=== PATIENT | male | born 1975 | race Asian ===

== ENCOUNTER 2017-01-05 09:00 | Emergency (ER) | payer MEDICAID, OTHER ==
[~2017-01-05] VITALS: Ht 175.3 cm; Wt 84.4 kg
[~2017-01-05 09:00] MED LIST: VALS160T2 PO
[2017-01-05 09:03] VITALS: BP 148/95
--- NOTE | 2017-01-05 10:42 | NUR ---
Patient ambulated to OF to be evaluated as fast track by Dr. Dooley.
--- NOTE | 2017-01-05 10:44 | NUR ---
PATIENT PRESENTS TO ED WITH RASH BACK OF NECK . PT STATES . DENIES N/V/D; SKIN IS PINK/WARM/DRY; AAOX4 WITH EVEN AND STEADY GAIT; LUNGS CLEAR BL; HR EVEN AND REGULAR; PT DENIES ANY FEVER, CP, SOB, OR COUGH AT THIS TIME; PATIENT STATES PAIN OF 0/10 AT THIS TIME; VSS; PATIENT POSITIONED FOR COMFORT; HOB ELEVATED; BEDRAILS UP X2; BED DOWN. ER MD MADE AWARE OF PT STATUS.
--- NOTE | 2017-01-05 10:50 | NUR ---
Dr. Dooley evaluating patient at bedside.
[2017-01-05 10:58] VITALS: BP 148/99
== END 2017-01-05 10:58 | disposition home or self-care (01) ==
LOC: MED 09:00
DX: L08.9 Local infection of the skin and subcutaneous tissue, unspecified (principal); I10 Essential (primary) hypertension
CPT/HCPCS: 99283

== ENCOUNTER 2017-01-24 12:15 | Emergency (ER) | payer MEDICAID ==
[~2017-01-24] VITALS: Ht 172.7 cm; Wt 79.4 kg
[2017-01-24 12:36] VITALS: BP 150/108
[2017-01-24 13:01] LABS: BASOPHILS # (AUTO) 0.2 K/uL (0.00-0.22); BASOPHILS % (AUTO) 2.1 % (0.0-2.0); EOSINOPHILS # (AUTO) 0.3 K/uL (0-0.4); EOSINOPHILS % (AUTO) 3.1 % (0.0-4.0); HEMATOCRIT 50.3 % (36-52); HEMOGLOBIN 16.8 g/dL (12.0-18.0); LYMPHOCYTES # (AUTO) 2.1 K/uL (2.0-11.5); LYMPHOCYTES % (AUTO) 22.9 % (20.5-51.1); MEAN CORPUSCULAR HEMOGLOBIN 31 pg (27-31); MEAN CORPUSCULAR HGB CONC 33 g/dL (33-37); MEAN CORPUSCULAR VOLUME 93 fL (80-94); MONOCYTES # (AUTO) 0.4 K/uL (0.8-1.0); MONOCYTES % (AUTO) 4.8 % (1.7-9.3); NEUTROPHILS # (AUTO) 6.1 K/uL (1.8-7.7); NEUTROPHILS % (AUTO) 67.1 % (42.2-75.2); PLATELET COUNT (AUTO) 280 K/uL (140-450); RED BLOOD CELL COUNT(AUTO) 5.44 MIL/uL (4.20-6.10); RED CELL DISTRIBUTION WIDTH 11.2 % (11.6-13.7); WHITE BLOOD COUNT (AUTO) 9.1 K/uL (4.8-10.8)
[2017-01-24 13:23] LABS: ALBUMIN 4.4 g/dL (3.4-5.0); ANION GAP 11.4 (8-16); CALCIUM 9.1 mg/dL (8.5-10.1); CARBON DIOXIDE 30.4 mmol/L (21-32); POTASSIUM 3.8 mmol/L (3.5-5.1); TOTAL PROTEIN, SERUM 7.8 g/dL (6.4-8.2)
[2017-01-24 13:24] LABS: INR 1.1 (0.8-1.2); PARTIAL THROMBOPLASTIN TIME 27.2 secs (22-35.6); PROTHROMBIN TIME 10.4 secs (10.8-13.4)
--- NOTE | 2017-01-24 15:13 | NUR ---
PATIENT LEFT WITHOUT BEING SEEN BY DR. VALLECILLO. NO FURTHER CARE PROVIDED FOR PATIENT.
== END 2017-01-24 15:13 | disposition left against medical advice (07) ==
LOC: MED 12:15
DX: R03.0 Elevated blood-pressure reading, without diagnosis of hypertension (principal); Z53.21 Procedure and treatment not carried out due to patient leaving prior to being seen by health care provider
CPT/HCPCS: 36415; 80053; 83880; 84484; 85025; 85610; 85730; 93005

== ENCOUNTER 2017-04-22 18:46 | Emergency (ER) | payer MEDICAID ==
[~2017-04-22] VITALS: Ht 172.7 cm; Wt 82.6 kg
[2017-04-22 18:52] VITALS: BP 161/108
--- NOTE | 2017-04-22 19:47 | NUR ---
Patient to OF.
--- NOTE | 2017-04-22 20:08 | NUR ---
Patient to bed 04.
--- NOTE | 2017-04-22 20:10 | NUR ---
PT PRESENTS TO ER FOR EVALUATION OF ELEVATED BLOOD PRESSURE. PT STATES HE SEEN HIS PCP FOR SAME S/SX AND WAS GIVEN A PO MEDICATION AND INSTRUCTED IF B/P DIDN'T COME DOWN, TO GO TO ER. BLOOD PRESSURE UPON ARRIVAL TO ER 161/108.
--- NOTE | 2017-04-22 20:52 | NUR ---
Patient being evaluated by physician DR STINSON at bedside.
[2017-04-22 21:01] VITALS: BP 138/93
--- NOTE | 2017-04-22 21:01 | NUR ---
Patient discharged with v/s stable. Written and verbal after care instructions given and explained. Patient verbalized understanding. Ambulatory with steady gait. All questions addressed prior to discharge. Advised to follow up with PMD.
== END 2017-04-22 21:01 | disposition home or self-care (01) ==
LOC: MED 18:46
DX: I16.0 Hypertensive urgency (principal); Z79.899 Other long term (current) drug therapy
CPT/HCPCS: 99283

== ENCOUNTER 2017-04-28 20:11 | Emergency (ER) | payer MEDICAID ==
[~2017-04-28] VITALS: Ht 172.7 cm; Wt 83.1 kg
[2017-04-28 20:20] VITALS: BP 160/104
[2017-04-28] MEDS ORDERED: HYDR25TA32 PO (20:28)
[2017-04-28] MEDS ORDERED: AMLO5TAB PO (20:28)
[2017-04-28] MEDS ORDERED: ATEN50TA8 PO (20:28)
--- NOTE | 2017-04-28 20:48 | NUR ---
Patient ambulated to bed 04.
--- NOTE | 2017-04-28 20:48 | NUR ---
42Y M BIB SELD c/o high blood pressure at home was 160/111. DENIES N/V/D. MILD HEADACHE, DENIES BLURRED VISION. MED HX: HTN ; SKIN IS PINK/WARM/DRY; AAOX4 WITH EVEN AND STEADY GAIT; LUNGS CLEAR BL; HR EVEN AND REGULAR; PT DENIES ANY FEVER, CP, SOB, OR COUGH AT THIS TIME;; VSS; PATIENT POSITIONED FOR COMFORT; HOB ELEVATED; BEDRAILS UP X2; BED DOWN. ER MD MADE AWARE OF PT STATUS.
--- NOTE | 2017-04-28 21:50 | NUR ---
Dr. Adams evaluating patient at bedside.
[2017-04-28] MEDS ORDERED: hydrALAZINE 20 MG/ML VIAL IM ONE (22:00)
[2017-04-28 22:56] VITALS: BP 136/84
--- NOTE | 2017-04-28 22:56 | NUR ---
Patient discharged with v/s stable. Written and verbal after care instructions given and explained. Patient alert, oriented and verbalized understanding of instructions. Ambulatory with steady gait. All questions addressed prior to discharge. ID band removed. Patient advised to follow up with PMD. Rx of CLONIDINE 0.1MG given. Patient educated on indication of medication including possible reaction and side effects. Opportunity to ask questions provided and answered.
== END 2017-04-28 22:56 | disposition home or self-care (01) ==
LOC: MED 20:11
DX: I10 Essential (primary) hypertension (principal)
CPT/HCPCS: 96372; 99283; J0360

== ENCOUNTER 2017-04-29 10:37 | Emergency (ER) | payer MEDICAID ==
[~2017-04-29] VITALS: Ht 172.7 cm; Wt 82.6 kg
[~2017-04-29 10:37] MED LIST changes: +AMLO5TAB PO; +ATEN50TA8 PO; +HYDR25TA32 PO; -VALS160T2 PO
[2017-04-29 10:45] VITALS: BP 154/107
[2017-04-29] MEDS ORDERED: hydrALAZINE 20 MG/ML VIAL IM ONE (14:15)
[2017-04-29 15:03] VITALS: BP 128/86
== END 2017-04-29 15:03 | disposition home or self-care (01) ==
LOC: MED 10:37
DX: R51 Headache (principal); I10 Essential (primary) hypertension
CPT/HCPCS: 99283

== ENCOUNTER 2017-05-02 21:07 | Emergency (ER) | payer MEDICAID ==
[~2017-05-02] VITALS: Ht 172.7 cm; Wt 82.6 kg
[2017-05-02 21:13] VITALS: BP 155/97
[2017-05-02 22:06] VITALS: BP 130/85
== END 2017-05-02 22:00 | disposition home or self-care (01) ==
LOC: MED 21:07
DX: I10 Essential (primary) hypertension (principal); Z79.899 Other long term (current) drug therapy
CPT/HCPCS: 99283

== ENCOUNTER 2017-07-05 08:53 | Emergency (ER) | payer MEDICAID ==
[~2017-07-05] VITALS: Ht 172.7 cm; Wt 82.3 kg
[2017-07-05 09:00] VITALS: BP 135/85
--- NOTE | 2017-07-05 09:08 | NUR ---
Patient ambulated to bed 6. RN evaluating patient at bedside.
--- NOTE | 2017-07-05 09:08 | NUR ---
Dr. Coats evaluating patient at bedside.
--- NOTE | 2017-07-05 09:12 | NUR ---
PATIENT PRESENTS TO ED WITH C/O RASH TO HIS BLE AND ARMS AND NECK . PT STATES HE STARTED TAKING AMLODIPINE A MONTH AGO BEFORE THE RASHES APPEARED. PATIENT STATES HE APPLIES CREAM TO THE RASHES TO RELIEVE SYMPTOMS OF REDNESS AND ITCH . DENIES N/V/D; SKIN IS PINK/WARM/DRY; AAOX4 WITH EVEN AND STEADY GAIT; LUNGS CLEAR BL; HR EVEN AND REGULAR; PT DENIES ANY FEVER, CP, SOB, OR COUGH AT THIS TIME; PATIENT STATES PAIN OF 0/10 AT THIS TIME; VSS; PATIENT POSITIONED FOR COMFORT; HOB ELEVATED; BEDRAILS UP X2; BED DOWN. ER MD MADE AWARE OF PT STATUS.
[2017-07-05 10:05] LABS: BASOPHILS # (AUTO) 0.2 K/uL (0.00-0.22); BASOPHILS % (AUTO) 3.2 % (0.0-2.0); EOSINOPHILS # (AUTO) 0.3 K/uL (0-0.4); EOSINOPHILS % (AUTO) 3.5 % (0.0-4.0); HEMATOCRIT 43.9 % (36-52); HEMOGLOBIN 15.1 g/dL (12.0-18.0); LYMPHOCYTES # (AUTO) 1.3 K/uL (2.0-11.5); LYMPHOCYTES % (AUTO) 18.6 % (20.5-51.1); MEAN CORPUSCULAR HEMOGLOBIN 32 pg (27-31); MEAN CORPUSCULAR HGB CONC 34 g/dL (33-37); MEAN CORPUSCULAR VOLUME 93 fL (80-94); MONOCYTES # (AUTO) 0.5 K/uL (0.8-1.0); MONOCYTES % (AUTO) 7.2 % (1.7-9.3); NEUTROPHILS # (AUTO) 4.9 K/uL (1.8-7.7); NEUTROPHILS % (AUTO) 67.5 % (42.2-75.2); PLATELET COUNT (AUTO) 240 K/uL (140-450); RED BLOOD CELL COUNT(AUTO) 4.74 MIL/uL (4.20-6.10); RED CELL DISTRIBUTION WIDTH 11.5 % (11.6-13.7); WHITE BLOOD COUNT (AUTO) 7.2 K/uL (4.8-10.8)
[2017-07-05 10:16] LABS: PROTHROMBIN TIME 10.4 secs (10.8-13.4)
[2017-07-05 10:42] VITALS: BP 131/98
--- NOTE | 2017-07-05 10:43 | NUR ---
Patient discharged with v/s stable. Written and verbal after care instructions given and explained. Patient alert, oriented and verbalized understanding of instructions. Ambulatory with steady gait. All questions addressed prior to discharge. ID band removed. Patient advised to follow up with PMD. Rx of hydrocortisone topical cream given. Patient educated on indication of medication including possible reaction and side effects. Opportunity to ask questions provided and answered.
== END 2017-07-05 10:43 | disposition home or self-care (01) ==
LOC: MED 08:53
DX: S40.861A Insect bite (nonvenomous) of right upper arm, initial encounter (principal); Z79.899 Other long term (current) drug therapy; I10 Essential (primary) hypertension; W57.XXXA Bitten or stung by nonvenomous insect and other nonvenomous arthropods, initial encounter; Y99.2 Volunteer activity; Y93.89 Activity, other specified; Y92.89 Other specified places as the place of occurrence of the external cause
CPT/HCPCS: 36415; 85025; 85610; 85730; 99284

== ENCOUNTER 2017-07-29 16:25 | Emergency (ER) | payer MEDICAID ==
[~2017-07-29] VITALS: Ht 172.7 cm; Wt 82.6 kg
[2017-07-29 16:50] VITALS: BP 139/97
[2017-07-29 18:00] LABS: HEMATOCRIT 48.1 % (36-52); MEAN CORPUSCULAR HEMOGLOBIN 31 pg (27-31); MEAN CORPUSCULAR HGB CONC 33 g/dL (33-37); MEAN CORPUSCULAR VOLUME 92 fL (80-94); PLATELET COUNT (AUTO) 247 K/uL (140-450); RED BLOOD CELL COUNT(AUTO) 5.21 MIL/uL (4.20-6.10); RED CELL DISTRIBUTION WIDTH 11.4 % (11.6-13.7); WHITE BLOOD COUNT (AUTO) 14.8 K/uL (4.8-10.8)
[2017-07-29 18:13] LABS: APPEARANCE,URINE CLOUDY (CLEAR); COLOR,URINE AMBER (YELLOW)
[2017-07-29 18:15] LABS: BILIRUBIN,URINE NEGATIVE (NEGATIVE); BLOOD, URINE 3+ (NEGATIVE); LEUKOCYTE ESTERASE ,URINE 2+ (NEGATIVE); NITRITE, URINE POSITIVE (NEGATIVE)
[2017-07-29 18:16] LABS: ALBUMIN 4.2 g/dL (3.4-5.0); ANION GAP 11.3 (8-16); CARBON DIOXIDE 30.5 mmol/L (21-32); POTASSIUM 3.8 mmol/L (3.5-5.1); TOTAL BILIRUBIN 0.7 mg/dL (0.0-1.0)
[2017-07-29 18:16] LABS: UGLUCOSE NEGATIVE (NEGATIVE)
[2017-07-29 18:17] LABS: EOSINOPHILS % (MANUAL) 2 % (0-4); LYMPHOCYTES % (MANUAL) 20 % (20-46); MONOCYTES % (MANUAL) 6 % (5-12)
[2017-07-29 18:17] LABS: RBC,URINE TOO NUMEROUS TO COUN /HPF (0-5); WBC,URINE 20-60 /HPF (0-5)
[2017-07-29] MEDS ORDERED: cefTRIAXone 1,000 MG in LIDOCAINE 1% ***ER ONLY *** 2.1 ML IM ONE (18:45)
[2017-07-29 19:18] VITALS: BP 136/98
== END 2017-07-29 19:18 | disposition home or self-care (01) ==
LOC: MED 16:25
DX: N39.0 Urinary tract infection, site not specified (principal); I10 Essential (primary) hypertension; Z79.899 Other long term (current) drug therapy
CPT/HCPCS: 36415; 80053; 81001; 83605; 85025; 87040; 87086; 87186; 96372; 99284; J0696; J2001

== ENCOUNTER 2017-09-21 05:56 | Emergency (ER) | payer MEDICAID ==
[~2017-09-21] VITALS: Ht 172.7 cm; Wt 81.6 kg
[2017-09-21 06:08] VITALS: BP 144/89
--- NOTE | 2017-09-21 06:16 | NUR ---
to lobby amb, v/s stable, a/w for bed ., ermd noted
--- NOTE | 2017-09-21 08:51 | NUR ---
pt c/o soar throat and chills x3 days. states taking motrin at home with some relief. pt stable at this time. sitting in chair. md aware and awaiting orders.
[2017-09-21 09:05] VITALS: BP 134/90
--- NOTE | 2017-09-21 09:08 | NUR ---
Patient discharged with v/s stable. Written and verbal after care instructions given and explained. Patient alert, oriented and verbalized understanding of instructions. Ambulatory with steady gait. All questions addressed prior to discharge. ID band removed. Patient advised to follow up with PMD. Rx of prednisone and motrin given. Patient educated on indication of medication including possible reaction and side effects. Opportunity to ask questions provided and answered.
== END 2017-09-21 09:08 | disposition home or self-care (01) ==
LOC: MED 05:56
DX: J02.9 Acute pharyngitis, unspecified (principal); I10 Essential (primary) hypertension
CPT/HCPCS: 99283

== ENCOUNTER 2017-11-10 11:00 | Emergency (ER) | payer MEDICAID ==
[~2017-11-10] VITALS: Ht 172.7 cm; Wt 82.7 kg
[2017-11-10 11:04] VITALS: BP 150/105
--- NOTE | 2017-11-10 11:15 | NUR ---
42m bib self with c/o increased frequency and urgency x 2 days, progressively getting worse. Pt deneis any penile discharge, pain, or n/v/d. Pt sts voiding ever 10-15 mins. Pt is aox4 with steady gait. RR are even and unlabored. NAD. Awaiting er md dixon. All needs met at this time.
[2017-11-10 11:35] VITALS: BP 148/98
--- NOTE | 2017-11-10 11:35 | NUR ---
Patient discharged with v/s stable. Written and verbal after care instructions given and explained. Patient alert, oriented and verbalized understanding of instructions. Ambulatory with to car. All questions addressed prior to discharge. ID band removed. Patient advised to follow up with PMD. Rx of Flomax given. Patient educated on indication of medication including possible reaction and side effects. Opportunity to ask questions provided and answered.
== END 2017-11-10 11:35 | disposition home or self-care (01) ==
LOC: MED 11:00
DX: R35.0 Frequency of micturition (principal); I10 Essential (primary) hypertension; E78.5 Hyperlipidemia, unspecified; Z79.899 Other long term (current) drug therapy
CPT/HCPCS: 81002; 99283

== ENCOUNTER 2017-11-15 11:08 | Emergency (ER) | payer MEDICAID ==
[~2017-11-15] VITALS: Ht 172.7 cm; Wt 82.6 kg
[2017-11-15 11:13] VITALS: BP 160/103
--- NOTE | 2017-11-15 11:16 | NUR ---
PT AMBULATED TO BED 4.
--- NOTE | 2017-11-15 11:18 | NUR ---
42M BIB SELF C/O HIGH BLOOD PRESSURE X THIS MORNING; PT STATES PCP CHANGED PT'S MEDICATION, PT TOOK BP, SBP WAS AT 110, SO PT CAME TO ER; PT STATES NO PAIN, NO N/V/D, NO DIZZINESS, OR BLURRY VISION AT THIS TIME; PT STATES " I JUST HAVE A LITTLE HEADACHE, BUT NO PAIN"; PT AA&OX4, PERRLA, BL LUNG SOUNDS CLEAR, RR EVEN/UNLABORED, SKIN IS WARM/DRY/INTACT WITH EVEN AND STEADY GAIT; PT RESTING IN BED WITH HOB ELEVATED AND IN LOWEST POSITION; POSITIONED FOR COMFORT; ER MD MADE AWARE OF STATUS. WILL CONTINUE TO MONITOR.
--- NOTE | 2017-11-15 11:21 | NUR ---
ER MD DR. VALLECILLO EVALUATING PT AT BEDSIDE.
[2017-11-15 11:28] VITALS: BP 153/91
== END 2017-11-15 11:28 | disposition home or self-care (01) ==
LOC: MED 11:08
DX: I10 Essential (primary) hypertension (principal)
CPT/HCPCS: 99283

== ENCOUNTER 2018-03-02 11:18 | Emergency (ER) | payer MEDICAID ==
[~2018-03-02] VITALS: Ht 172.7 cm; Wt 83.0 kg
[~2018-03-02 11:18] MED LIST changes: -HYDR25TA32 PO
[2018-03-02 11:28] VITALS: BP 142/100
--- NOTE | 2018-03-02 11:33 | NUR ---
patient to rm 12 with steady gait. gave report to Laura MEYERS.
[2018-03-02] MEDS ORDERED: NACL 0.9% 1,000 ML IV SCH (11:48)
[2018-03-02] MEDS ORDERED: GLYCOPYRROLATE 0.2 MG/ML VIAL IV ONE (11:50)
[2018-03-02] MEDS ORDERED: KETOROLAC 30 MG/ML VIAL IVP ONE (11:50)
--- NOTE | 2018-03-02 12:00 | NUR ---
PATIENT CAME IN TO THE ER WITH COMPLAINT OF RIGHT UPPER ABDOMINAL PAIN, UPPER RIGHT QUADRANT. PATIENT HAS BEEN HAVING PAIN FOR ABOUT ONE WEEK. PT STATES THAT IT SEEMS THAT WHEN HE TAKES HIS HTN MEDICATION, IT ALWAYS STARTS TO HURT. THE PAIN DOES GO AWAY DURING THE DAY BUT RETURNS WHEN HE TAKES HIS MEDICATION AGAIN. BOWL SOUNDS ARE ACTIVE ON ALL FOUR QUADRANTS. ABDOMEN FEELS SLIGHTLY DISTENDED WHEN PALPATED BUT NO PAIN TO PALPATION. . PATIENT HAS A HISTORY OF HTN. NO KNOWN ALLERGIES. PATIENT WAS PHAN TO VOID FOR U/A PATIENT IS A LEVEL 7/10 PAIN BUT REFUSED MEDICATION AND IV MANAGMENT. PT STATES HE JUST WANTS BLOOD TEST AND CT. PT IS RESTING IN BED.
--- NOTE | 2018-03-02 12:07 | NUR ---
PT REFUSED MEDICATION AND IV MANAGEMENT. PATIENTS STATES HIS PAIN IS TOLERABLE FOR NOW. PATIENT LEVEL OF AIN IS A 7/10. PATIENT IS RESTING IN BED
--- NOTE | 2018-03-02 12:07 | NUR ---
LAB IS WITH BRUNA
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
--- NOTE | 2018-03-02 12:17 | NUR ---
ULTRASOUND IS WITH PATIENT
[2018-03-02 12:19] LABS: BASOPHILS # (AUTO) 0.1 K/uL (0.00-0.22); BASOPHILS % (AUTO) 1.3 % (0.0-2.0); EOSINOPHILS # (AUTO) 0.4 K/uL (0-0.4); EOSINOPHILS % (AUTO) 5.1 % (0.0-4.0); HEMATOCRIT 44.2 % (36-52); LYMPHOCYTES # (AUTO) 1.7 K/uL (2.0-11.5); LYMPHOCYTES % (AUTO) 24.5 % (20.5-51.1); MEAN CORPUSCULAR HEMOGLOBIN 31 pg (27-31); MEAN CORPUSCULAR HGB CONC 34 g/dL (33-37); MEAN CORPUSCULAR VOLUME 91.3 fL (80-94); MONOCYTES # (AUTO) 0.6 K/uL (0.8-1.0); MONOCYTES % (AUTO) 8.8 % (1.7-9.3); NEUTROPHILS # (AUTO) 4.3 K/uL (1.8-7.7); NEUTROPHILS % (AUTO) 60.3 % (42.2-75.2); PLATELET COUNT (AUTO) 241 K/uL (140-450); RED BLOOD CELL COUNT(AUTO) 4.84 MIL/uL (4.20-6.10); RED CELL DISTRIBUTION WIDTH 12.3 % (11.6-13.7); WHITE BLOOD COUNT (AUTO) 7.1 K/uL (4.8-10.8)
[2018-03-02 12:21] LABS: APPEARANCE,URINE CLEAR (CLEAR); BILIRUBIN,URINE NEGATIVE (NEGATIVE); BLOOD, URINE NEGATIVE (NEGATIVE); COLOR,URINE YELLOW (YELLOW); LEUKOCYTE ESTERASE ,URINE NEGATIVE (NEGATIVE); NITRITE, URINE NEGATIVE (NEGATIVE); UGLUCOSE 1+ (NEGATIVE)
[2018-03-02 12:34] LABS: ANION GAP 10.2 (8-16); CARBON DIOXIDE 26.4 mmol/L (21-32); POTASSIUM 3.6 mmol/L (3.5-5.1)
[2018-03-02 12:40] LABS: ALBUMIN 3.9 g/dL (3.4-5.0); TOTAL BILIRUBIN 0.7 mg/dL (0.0-1.0)
--- NOTE | 2018-03-02 14:00 | NUR ---
PATIENT IS AGITATED AND REFUSES PAIN MEDICATION. PAIN LEVEL IS A 7/10. PATIENT WANTED TO LEAVE AMA. DOCTOR CAME IN AND DISCUSSED THE RESULTS WITH THE PATIENT. THE PATIENT IS A LITTLE MORE AT EASE. HE WAS WORRIED ABOUT HIS RESULTS.
[2018-03-02 14:33] VITALS: BP 143/88
--- NOTE | 2018-03-02 14:34 | NUR ---
PATIENT WAS GIVEN DOCUMENTATION ON ULTRASOUND AND CT. PATIENT SEEMED LESS ANXIOUS AND WAS CLAM UPON DISCHARGE. VITALS WERE STABLE.
== END 2018-03-02 14:10 | disposition home or self-care (01) ==
LOC: MED 11:18
DX: K59.00 Constipation, unspecified (principal); R14.3 Flatulence; I10 Essential (primary) hypertension; Z79.899 Other long term (current) drug therapy
CPT/HCPCS: 36415; 74176; 76705; 80053; 81003; 82150; 83690; 85025; 99285; Q0092

== ENCOUNTER 2018-05-09 09:38 | Emergency (ER) | payer MEDICAID ==
[~2018-05-09] VITALS: Ht 172.7 cm; Wt 81.6 kg
--- NOTE | 2018-05-09 09:40 | NUR ---
PT AMBULATES TO BED 9
[2018-05-09 09:41] VITALS: BP 139/94
--- NOTE | 2018-05-09 09:45 | NUR ---
patient presents to ed with complaints of facial swelling. patient states he did not take his medications yesterday and just want to know if he can continue taking his medications. denies pain, denies trauma. DENIES N/V/D; SKIN IS PINK/WARM/DRY; AAOX4 WITH EVEN AND STEADY GAIT; LUNGS CLEAR BL; HR EVEN AND REGULAR; PT DENIES ANY FEVER, CP, SOB, OR COUGH AT THIS TIME;VSS; PATIENT POSITIONED FOR COMFORT; HOB ELEVATED; BEDRAILS UP X1; BED DOWN. ER MD MADE AWARE OF PT STATUS.
--- NOTE | 2018-05-09 09:50 | NUR ---
DR VILLAGOMEZ EVALUATING AT BEDSIDE
[2018-05-09] MEDS ORDERED: NACL 0.9% 1,000 ML IV SCH (09:56)
[2018-05-09] MEDS ORDERED: LACTULOSE 20 GM/30 ML UDC PO ONE (10:00)
[2018-05-09] MEDS ORDERED: KETOROLAC 30 MG/ML VIAL IVP ONE (10:00)
[2018-05-09] MEDS ORDERED: METOCLOPRAMIDE 10 MG TAB PO ONE (10:00)
[2018-05-09 10:27] VITALS: BP 139/94
== END 2018-05-09 10:28 | disposition home or self-care (01) ==
LOC: MED 09:38
DX: T67.5XXA Heat exhaustion, unspecified, initial encounter (principal); F41.9 Anxiety disorder, unspecified; F48.9 Nonpsychotic mental disorder, unspecified; E78.5 Hyperlipidemia, unspecified; F17.200 Nicotine dependence, unspecified, uncomplicated; Z79.899 Other long term (current) drug therapy; X58.XXXA Exposure to other specified factors, initial encounter; Y93.89 Activity, other specified; Y92.89 Other specified places as the place of occurrence of the external cause; Y99.8 Other external cause status
CPT/HCPCS: 99283

== ENCOUNTER 2018-07-03 02:25 | Emergency (ER) | payer MEDICAID ==
[~2018-07-03] VITALS: Ht 172.7 cm; Wt 82.1 kg
[2018-07-03 02:30] VITALS: BP 145/85
[2018-07-03] MEDS: IBUPROFEN 600 MG TAB PO ONE (02:37)
[2018-07-03 03:14] LABS: APPEARANCE,URINE CLEAR (CLEAR); BILIRUBIN,URINE NEGATIVE (NEGATIVE); BLOOD, URINE NEGATIVE (NEGATIVE); COLOR,URINE YELLOW (YELLOW); LEUKOCYTE ESTERASE ,URINE NEGATIVE (NEGATIVE); NITRITE, URINE NEGATIVE (NEGATIVE); UGLUCOSE NEGATIVE (NEGATIVE)
[2018-07-03 03:23] LABS: BASOPHILS # (AUTO) 0.1 K/uL (0.00-0.22); BASOPHILS % (AUTO) 0.8 % (0.0-2.0); EOSINOPHILS # (AUTO) 0.2 K/uL (0-0.4); EOSINOPHILS % (AUTO) 1.4 % (0.0-4.0); HEMATOCRIT 43.7 % (36-52); HEMOGLOBIN 15.1 g/dL (12.0-18.0); LYMPHOCYTES # (AUTO) 0.7 K/uL (2.0-11.5); MEAN CORPUSCULAR HEMOGLOBIN 32 pg (27-31); MEAN CORPUSCULAR HGB CONC 35 g/dL (33-37); MONOCYTES # (AUTO) 0.5 K/uL (0.8-1.0); MONOCYTES % (AUTO) 4.3 % (1.7-9.3); NEUTROPHILS # (AUTO) 9.5 K/uL (1.8-7.7); PLATELET COUNT (AUTO) 199 K/uL (140-450); RED CELL DISTRIBUTION WIDTH 12.1 % (11.6-13.7); WHITE BLOOD COUNT (AUTO) 10.9 K/uL (4.8-10.8)
[2018-07-03 03:26] LABS: ALBUMIN 3.9 g/dL (3.4-5.0); ANION GAP 10.6 (8-16); CARBON DIOXIDE 25.3 mmol/L (21-32); CREATININE 1.2 mg/dL (0.7-1.3); POTASSIUM 3.9 mmol/L (3.5-5.1); TOTAL BILIRUBIN 1.2 mg/dL (0.0-1.0)
[2018-07-03 03:28] LABS: LYMPHOCYTES % (AUTO) 6.5 % (20.5-51.1)
[2018-07-03] MEDS: NACL 0.9% 1,000 ML IV ONE (04:41)
[2018-07-03] MEDS ORDERED: VANCOMYCIN 1,000 MG VIAL ONE (05:26)
[2018-07-03] MEDS ORDERED: PIPERACILLIN/TAZOBACTAM 3.375 GM VIAL IV ONE (05:26)
[2018-07-03] MEDS: ACETAMINOPHEN EXTRA STRENGTH 500 MG TAB PO ONE (05:27)
[2018-07-03] MEDS: NACL 0.9% 1,500 ML IV ONE (05:28)
[2018-07-03] MEDS: PIPERACILLIN/TAZOBACTAM 3.375 GM in DEXTROSE 5% 50 ML IV ONE (05:56)
[2018-07-03] MEDS: VANCOMYCIN 1,000 MG in DEXTROSE 5% 250 ML IV ONE (06:20)
[2018-07-03 07:45] VITALS: BP 130/82
== END 2018-07-03 07:45 | disposition home or self-care (01) ==
LOC: MED 02:25
DX: R10.31 Right lower quadrant pain (principal); R50.9 Fever, unspecified; K76.0 Fatty (change of) liver, not elsewhere classified; R11.0 Nausea; I10 Essential (primary) hypertension; Z79.899 Other long term (current) drug therapy
CPT/HCPCS: 36415; 74176; 76705; 80053; 81003; 83605; 83690; 85025; 87040; 96365; 96366; 99285; J2543; J3370; J7030; Q0092

== ENCOUNTER 2019-07-27 17:58 | Emergency (ER) | payer MEDICAID ==
[~2019-07-27] VITALS: Ht 172.7 cm; Wt 72.6 kg
[2019-07-27 18:32] VITALS: BP 133/91
--- NOTE | 2019-07-27 18:38 | NUR ---
TO LOBBY AWAITING BED IN ED. VSS.
--- NOTE | 2019-07-27 20:32 | NUR ---
PT AMBULATED TO BED 07
[2019-07-27 20:34] LABS: BASOPHILS # (AUTO) 0.1 K/uL (0.00-0.22); BASOPHILS % (AUTO) 0.8 % (0.0-2.0); EOSINOPHILS # (AUTO) 0.1 K/uL (0-0.4); EOSINOPHILS % (AUTO) 1.9 % (0.0-4.0); HEMOGLOBIN 16.3 g/dL (12.0-18.0); LYMPHOCYTES # (AUTO) 2.3 K/uL (2.0-11.5); LYMPHOCYTES % (AUTO) 29.5 % (20.5-51.1); MEAN CORPUSCULAR HEMOGLOBIN 32 pg (27-31); MEAN CORPUSCULAR HGB CONC 34 g/dL (33-37); MEAN CORPUSCULAR VOLUME 93.6 fL (80-94); MONOCYTES # (AUTO) 0.5 K/uL (0.8-1.0); NEUTROPHILS # (AUTO) 4.8 K/uL (1.8-7.7); NEUTROPHILS % (AUTO) 61.8 % (42.2-75.2); PLATELET COUNT (AUTO) 244 K/uL (140-450); RED BLOOD CELL COUNT(AUTO) 5.13 MIL/uL (4.20-6.10); RED CELL DISTRIBUTION WIDTH 12.3 % (11.6-13.7); WHITE BLOOD COUNT (AUTO) 7.8 K/uL (4.8-10.8)
--- NOTE | 2019-07-27 20:35 | NUR ---
44/M PRESENTED TO ED WITH C/O CP X 5 DAYS. SHARP 3/10 PAIN CONSTANT. C/O ABD CRAMPING. DENIES N/V/D. NO FEVER. ABD SOFT NON TENDER. ACTIVE BOWEL SOUNDS HEARD. VSS. EVEN UNLABORED BREATHING. DENIES SOB. NO SIGNS OF DISTRESS NOTED. RESTING IN CHAIR. WILL CONTINUE TO MONITOR. PMH- DM, HLD, HTN NKA
[2019-07-27 20:59] LABS: ALBUMIN 4.6 g/dL (3.4-5.0); ANION GAP 12.3 (8-16); CARBON DIOXIDE 30.6 mmol/L (21-32); CREATININE 0.7 mg/dL (0.7-1.3); POTASSIUM 3.9 mmol/L (3.5-5.1); TOTAL BILIRUBIN 0.8 mg/dL (0.0-1.0)
--- NOTE | 2019-07-27 22:40 | NUR ---
PT BEING EXAMINED BY AMANDA
[2019-07-28 00:45] VITALS: BP 138/92
--- NOTE | 2019-07-28 00:45 | NUR ---
PT DISCHARGED WITH PAPERWORK. RX PRILOSEC AND MOTRIN. EDUCATED PT REGARDING MEDICATIONS AND S/E. EDUCATED PT REGARDING D/C DIAGNOSIS AND INSTRUCTIONS. PT VERBALIZED UNDERSTANDING OF TEACHING. TOLD PT TO FOLLOW UP WITH PCP AND WHEN TO RETURN TO ED. PT VSS. PT DENIES ANY CHEST PAIN. ALL QUESTIONS ANSWERED.
== END 2019-07-28 00:45 | disposition home or self-care (01) ==
LOC: MED 17:58
DX: R07.89 Other chest pain (principal); E11.9 Type 2 diabetes mellitus without complications; I10 Essential (primary) hypertension; E78.5 Hyperlipidemia, unspecified; Z79.899 Other long term (current) drug therapy
CPT/HCPCS: 36415; 71045; 80053; 84484; 85025; 93005; 99284

== ENCOUNTER 2022-10-15 09:25 | Emergency (ER) | payer MEDICAID ==
[~2022-10-15] VITALS: Ht 167.6 cm; Wt 75.7 kg
[2022-10-15 09:28] VITALS: BP 172/106
[2022-10-15] MEDS ORDERED: KETOROLAC 30 MG/ML VIAL IM ONE (10:35)
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
[2022-10-15] MEDS ORDERED: NAPR-54 PO (10:41)
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
--- NOTE | 2022-10-15 11:19 | NUR ---
Patient discharged with v/s stable. Written and verbal after care instructions ABOUT W[employer]AIN given and explained. Patient alert, oriented and verbalized understanding of instructions. Ambulatory with steady gait. All questions addressed prior to discharge. ID band removed. Patient advised to follow up with PMD. Rx of NAPROXEN given. Patient educated on indication of medication including possible reaction and side effects. Opportunity to ask questions provided and answered.
== END 2022-10-15 11:19 | disposition home or self-care (01) ==
LOC: MED 09:25
DX: S63.501A Unspecified sprain of right wrist, initial encounter (principal); S53.401A Unspecified sprain of right elbow, initial encounter; E11.9 Type 2 diabetes mellitus without complications; I10 Essential (primary) hypertension; Z79.4 Long term (current) use of insulin; Z79.899 Other long term (current) drug therapy; Y08.89XA Assault by other specified means, initial encounter; Y93.89 Activity, other specified; Y92.89 Other specified places as the place of occurrence of the external cause; Y99.8 Other external cause status
CPT/HCPCS: 73080; 73130; 99284; Q0092; J1885

== ENCOUNTER 2022-11-28 12:29 | Emergency (ER) | payer MEDICAID ==
[~2022-11-28] VITALS: Ht 172.7 cm; Wt 78.0 kg
[~2022-11-28 12:29] MED LIST changes: +NAPR-54 PO
[2022-11-28 12:30] VITALS: BP 140/101
--- NOTE | 2022-11-28 12:35 | NUR ---
Paulina mckeon in [facility] - 11/28/22 at 1235 by [email or web address] MARY JO
[2022-11-28 13:59] LABS: APPEARANCE,URINE CLEAR (CLEAR); BILIRUBIN,URINE NEGATIVE (NEGATIVE); BLOOD, URINE NEGATIVE (NEGATIVE); COLOR,URINE YELLOW (YELLOW); LEUKOCYTE ESTERASE ,URINE NEGATIVE (NEGATIVE); NITRITE, URINE NEGATIVE (NEGATIVE); UGLUCOSE 3+ (NEGATIVE)
--- NOTE | 2022-11-28 14:00 | NUR ---
Paulina mckeon in ED - 11/28/22 at 1852 by FRANK PATIENT LEFT WITHOUT BEING SEEN BY SHANE LOCO. NO FURTHER CARE PROVIDED FOR PATIENT.
--- NOTE | 2022-11-28 14:00 | NUR ---
CALLED BY JAVA MANAGER;NO ANSWER Addendum: 11/28/22 at 1519 by [facility] PATIENT LEFT WITHOUT BEING SEEN BY DR. GALINDO. NO FURTHER CARE PROVIDED FOR PATIENT.
== END 2022-11-28 15:19 | disposition left against medical advice (07) ==
LOC: MED 12:29
DX: R30.9 Painful micturition, unspecified (principal); Z53.21 Procedure and treatment not carried out due to patient leaving prior to being seen by health care provider
CPT/HCPCS: 81003; 87491; 99281